=== PATIENT | male | born 1950 | race Caucasian/White ===

== ENCOUNTER 2022-11-04 06:49 | Inpatient (IN) ==
[2022-11-04] MEDS ORDERED: SODIUM CHLORIDE 0.9% 1000ML 1,000 ML IV SCH (07:15)
[2022-11-04] MEDS ORDERED: levETIRAcetam 1,000 MG in 0.9 % SODIUM CHLORIDE 100 ML IV STA (07:23)
[2022-11-04] MEDS ORDERED: LORazepam 2 MG/1 ML VIAL IV STA (07:25)
[2022-11-04 07:51] LABS: Appearance Urine Clear (Clear); Bacteria Urine Automated Negative (Negative); Bilirubin Urine Negative (Negative); Blood Urine Negative (Negative); Color Urine Yellow; Glucose Urine UA Negative (Negative); Ketones Urine Negative (Negative); Leukocyte Esterase Urine Negative (Negative); Nitrite Urine Negative (Negative); Protein Urine 2+ (Negative); RBC Urine Automated 0-4 /hpf (0-4); Specific Gravity Urine 1.017 (1.000-1.030); Urobilinogen Urine Negative (Negative); pH Urine 5.5 (4.5-7.5)
--- NOTE | 2022-11-04 07:58 | CT Scan Report ---
CT head/brain wo con CLINICAL HISTORY: 71 years-old Male with seizure. Acute seizure-like activity with altered mental st atus TECHNIQUE: Multiple axial CT images of the head were obtained without contrast. A dose lowering tech nique was utilized adhering to the principles of ALARA. CT DOSE: 1140.94 mGy.cm COMPARISON: None. FINDINGS: No acute intracranial hemorrhage, midline shift, intracranial mass, hydrocephalus, territorial ischem ia or abnormal extra-axial collection. Mild involutional changes. This study is motion degraded. The calvarium is intact. Trace right mastoid effusion. The left mastoid air cells are clear. Minimal mucosal thickening of the ethmoid sinuses. IMPRESSION: No acute intracranial abnormality. ACT 112: Negative or not required by law. The above report was generated using voice recognition software. It may contain grammatical, syntax o r spelling errors. Electronically signed by: Isidoro Gaines M.D. 11/04/2022 7:57 AM
--- NOTE | 2022-11-04 07:59 | XRay Report ---
XR chest 1V portable HISTORY: 71 years-old Male hypoxia acute hypoxia COMPARISON: None TECHNIQUE: AP view the chest FINDINGS: Cardiac silhouette is enlarged. Loop recorder device. Possible pulmonary emphysema. Interstitial coar sening is likely chronic. No pneumothorax, pleural effusion or lobar airspace consolidation. Degenera tive changes of the shoulders and spine. IMPRESSION: No acute process. ACT 112: Negative or not required by law. The above report was generated using voice recognition software. It may contain grammatical, syntax o r spelling errors. Electronically signed by: Isidoro Gaines M.D. 11/04/2022 7:58 AM
[2022-11-04 08:01] LABS: Basophils # (auto) 0.08 K/uL (0-0.2); Basophils % (auto) 1.1 %; Eosinophils # (auto) 0.13 K/uL (0-0.50); Eosinophils % (auto) 1.8 %; Hematocrit (blood only) 45.2 % (42.0-52.0); Hemoglobin 15.3 g/dl (14.0-18.0); Immature Granulocytes # (auto) 0.02 K/uL (0.01-0.20); Immature Granulocytes % (auto) 0.3 %; Lymphocytes # (auto) 1.44 K/uL (1.2-3.4); Lymphocytes % (auto) 20.4 %; Mean Corpuscular Hemoglobin 33.3 pg (25.0-34.0); Mean Corpuscular Hgb Conc 33.8 g/dL (32.0-36.0); Mean Corpuscular Volume 98.3 fL (80.0-100.0); Mean Platelet Volume 10.9 fL (9.4-12.4); Monocytes # (auto) 0.53 K/uL (0.11-0.59); Monocytes % (auto) 7.5 %; Neutrophils # (auto) 4.85 K/uL (1.40-6.50); Neutrophils % (auto) 68.9 %; Platelet Count 192 K/uL (130-400); RDW Coefficient of Variation 12.5 % (11.5-14.5); RDW Standard Deviation 44.9 fL (36.4-46.3); White Blood Count 7.05 K/ul (4.8-10.8)
[2022-11-04 08:08] LABS: Albumin Globulin Ratio 1.5 (0.9-2); Albumin Level 3.8 gm/dl (3.4-5.0); BUN Creatinine Ratio 17.3 (10-20); Bilirubin,Total 0.5 mg/dl (0.2-1.0); Creatinine Clr Calc Pharmacy 70.8 ml/min; Est GFR (African American) 107.7 ml/min; Est GFR (Non-African American) 92.9 ml/min; Globulin 2.5 gm/dl (2.5-4.0); Magnesium 1.8 mg/dl (1.7-2.4); Potassium 4.4 mmol/L (3.5-5.1); Total Protein 6.3 gm/dl (6.0-8.3)
--- NOTE | 2022-11-04 10:25 | Emergency Department Note ---
Impression & Plan Seizure, COPD (chronic obstructive pulmonary disease), Hypoxia ED Provider Note CHIEF COMPLAINT: Seizure HISTORY OF PRESENT ILLNESS: This 71-year-old male patient with past medical history of seizure disorder, chronic tobacco dependency (smoking) [place] the emergency department [place] was witnessed to have a 2 to 3-minute episode of "grand mal seizure." Patient was apparently on his way back from the outhouse when he started with convulsions. There is no report of injury. The patient is currently very emotional, unable to recall where he lives or exactly what happened. He states he has not had a seizure in many years. Patient is noted to be hypoxic and on oxy mask upon my initial evaluation. There is no report of vomiting. Patient states he is congested in the nose. He does not believe he has had any recent illnesses. Most of the history is obtained through EMS from bystanders at the scene and nursing staff. REVIEW OF SYSTEMS: A review of systems was performed with positives and pertinent negatives listed in the history of present illness. 10 systems were reviewed and are otherwise negative. ALLERGIES: see below MEDICATIONS: see below PMH: see below SOCIAL HISTORY: see below DDx: Epilepsy, infection, hypoglycemia, electrolyte abnormalities, dysrhythmia, intracerebral event, trauma, toxicologic, neurologic, syncope, as well as other pathologies. PHYSICAL EXAM: Vital signs reviewed. General: Well-appearing 71-year-old man, tearful and anxious, in no significant distress. HEENT: No scleral icterus, PERRLA, neck supple. Atraumatic. Positive nasal congestion Cardiovascular: Regular rate and rhythm, no extra sounds. Pulmonary: Coarse breath sounds bilaterally, normal work of breathing. On oxy mask. Moist cough Abdomen: Soft, nontender, nondistended, positive bowel sounds. Musculoskeletal: Atraumatic, no peripheral edema. Neurologic: Patient awake alert and unable to recall events preceding the visit. He does recall being at the camp and trying to go to the out house. Unable to provide address and last name of his children. Skin: Warm, dry, no rash EMERGENCY DEPARTMENT COURSE/MDM: This patient was evaluated and appeared to be in no distress. Patient was loaded with IV Keppra 1 g as he states he has been taking his 500 mg twice daily without a miss. IV fluids were administered. CT imaging of the head was performed and reveals no evidence of acute intracranial abnormality. Patient's laboratory work is fairly reassuring. He was initially on oxy mask due to significant nasal congestion which we attributed to his tearful state. He was then put on room air oxygen but upon my reevaluation was sating 84%. He was not in any respiratory distress but given his tonic-clonic seizure and hypoxia, was felt the patient would best be served with hospitalization to ensure stability. I am concerned that the hypoxia may be lowering the patient's seizure threshold. Patient was placed on 2 L nasal can nula oxygen with significant improvement. Chest x-ray is clear. [facility]. MONITORING: An order for cardiac monitoring was placed and the patient is noted to be in a normal sinus rhythm 72 beats per minute. RADIOLOGY: CT imaging of the head to my interpretation reveals no evidence of acute intracranial abnormality. Otherwise defer to radiology EKG: To my interpretation reveals a sinus rhythm at 86 bpm with PVCs. QTc of 445. No ST segment changes appreciated. No previous EKGs available. DISPOSITION: Admission Past Med/Surg History Medical History COPD (chronic obstructive pulmonary disease) Seizure Tobacco abuse Surgical History No pertinent past surgical history Family History Other Family history unknown Social History Smoking Status: Current every day smoker Tobacco Type: Cigarettes Cigarettes Per Day: 20; Hx Alcohol Use: Yes Alcohol type: beer Alcohol type Comment: few beers on the weekend, nothing heavy Hx Substance Use: No Beliefs That Will Affect Care: None Current Living Situation: Alone Other Information That Helps Us Care for You: No Feels Safe at Home: Yes Safety Concerns: Feels Safe At This Time Assistive Devices: None Allergies Allergies Allergy/AdvReac Type Severity Reaction Status Date / Time penicillin V Allergy Unknown Verified 11/04/22 11:12 bee sting Allergy Unknown Uncoded 11/04/22 11:12 Home Meds Home Medications Medication Instructions Recorded Confirmed M.V.I. 1 tab PO DAILY 11/04/22 11/04/22 bisoprolol fumarate 5 mg tablet 5 mg PO DAILY 11/04/22 11/04/22 cetirizine 10 mg tablet (Zyrtec) 10 mg PO DAILY 11/04/22 11/04/22 krill oil 500 mg capsule 1,000 mg PO DAILY 11/04/22 11/04/22 levetiracetam 500 mg tablet 500 mg PO BID 11/04/22 11/04/22 Results & Data (ED) Vital Signs Vital Signs - 24 hr 11/04/22 07:59 11/04/22 08:10 11/04/22 08:51 Pulse Rate 87 Pulse Rate [Apical] 88 72 Pulse Rhythm [Apical] Regular Regular Pulse Strength [Apical] Normal Normal Respiratory Rate 16 18 Respiratory Effort / Characteristics Non-Labored Spontaneous Non-Labored Spontaneous Respiratory Depth Normal Normal Respiratory Pattern Regular Regular Blood Pressure [Right Arm] 141/93 H 127/78 Blood Pressure Mean [Right Arm] 109 94 Blood Pressure Position [Right Arm] Lying Lying Pulse Oximetry 94 92 Oxygen Delivery Method Room Air Nasal Cannula Oxygen Flow Rate 2 Oxygen Flow Rate - Titration Pulse Oximetry Post Tiitration 11/04/22 09:57 Pulse Rate Pulse Rate [Apical] Pulse Rhythm [Apical] Pulse Strength [Apical] Respiratory Rate Respiratory Effort / Characteristics Respiratory Depth Respiratory Pattern Blood Pressure [Right Arm] Blood Pressure Mean [Right Arm] Blood Pressure Position [Right Arm] Pulse Oximetry 84 L Oxygen Delivery Method Nasal Cannula Oxygen Flow Rate 0 Oxygen Flow Rate - Titration 2 Pulse Oximetry Post Tiitration 92 Home Medications Current Medication List: was personally reviewed by me Laboratory Data Attestation: I reviewed the patient's lab results. 11/04/22 07:10 11/04/22 07:10 Lab Results 11/04/22 11/04/22 11/04/22 Range/Units 07:10 07:10 07:10 WBC 7.05 (4.8-10.8) K/ul RBC 4.60 L (4.70-6.10) M/uL Hgb 15.3 (14.0-18.0) g/dl Hct 45.2 (42.0-52.0) % MCV 98.3 (80.0-100.0) fL MCH 33.3 (25.0-34.0) pg MCHC 33.8 (32.0-36.0) g/dL RDW Std Deviation 44.9 (36.4-46.3) fL RDW Coeff of [place] 12.5 (11.5-14.5) % Plt Count 192 (130-400) K/uL MPV 10.9 (9.4-12.4) fL Immature Gran % (Auto) 0.3 % Neut % (Auto) 68.9 % Lymph % (Auto) 20.4 % [place] % (Auto) 7.5 % Eos % (Auto) 1.8 % Baso % (Auto) 1.1 % Neut # (Auto) 4.85 (1.40-6.50) K/uL Lymph # (Auto) 1.44 (1.2-3.4) K/uL [place] # (Auto) 0.53 (0.11-0.59) K/uL Eos # (Auto) 0.13 (0-0.50) K/uL Baso # (Auto) 0.08 (0-0.2) K/uL Immature Gran # (Auto) 0.02 (0.01-0.20) K/uL Sodium 141 (136-145) mmol/L Potassium 4.4 (3.5-5.1) mmol/L Chloride 105 (98-107) mmol/L Carbon Dioxide 32 (21-32) mmol/L Anion Gap 4 (3-11) BUN 13 (6-23) mg/dl Creatinine 0.75 (0.6-1.4) mg/dl Est Cr Clr Drug Dosing 70.8 ml/min Est GFR ( Amer) 107.7 ml/min Est GFR (Non-Af Amer) 92.9 ml/min BUN/Creatinine Ratio 17.3 (10-20) Glucose 107 H (70-99(Fasting)) mg/dl Lactate (0.4-2.0) mmol/L Calcium 9.0 (8.6-10.3) mg/dl Magnesium 1.8 (1.7-2.4) mg/dl Total Bilirubin 0.5 (0.2-1.0) mg/dl AST 20 (13-39) U/L ALT 12 (7-52) U/L Alkaline Phosphatase 73 (34-104) U/L Total Protein 6.3 (6.0-8.3) gm/dl Albumin 3.8 (3.4-5.0) gm/dl Globulin 2.5 (2.5-4.0) gm/dl Albumin/Globulin Ratio 1.5 (0.9-2) Urine Color Yellow Urine Appearance Clear (Clear) Urine pH 5.5 (4.5-7.5) Ur Specific [place] 1.017 (1.000-1.030) Urine Protein 2+ H (Negative) Urine Glucose (UA) Negative (Negative) Urine Ketones Negative (Negative) Urine Blood Negative (Negative) Urine Nitrite Negative (Negative) Urine Bilirubin Negative (Negative) Urine Urobilinogen Negative (Negative) Ur Leukocyte Esterase Negative (Negative) Urine WBC (Auto) 1-5 (0-5) /hpf Urine RBC (Auto) 0-4 (0-4) /hpf U Hyaline Cast (Auto) 5-10 H (0-5) /lpf U Epithel Cells (Auto) 10-20 H (0-5) /lpf Urine Bacteria (Auto) Negative (Negative) SARS-CoV-2, RNA, NAAT (NEGATIVE) 11/04/22 11/04/22 Range/Units 07:22 09:57 WBC (4.8-10.8) K/ul RBC (4.70-6.10) M/uL Hgb (14.0-18.0) g/dl Hct (42.0-52.0) % MCV (80.0-100.0) fL MCH (25.0-34.0) pg MCHC (32.0-36.0) g/dL RDW Std Deviation (36.4-46.3) fL RDW Coeff of [place] (11.5-14.5) % Plt Count (130-400) K/uL MPV (9.4-12.4) fL Immature Gran % (Auto) % Neut % (Auto) % Lymph % (Auto) % [place] % (Auto) % Eos % (Auto) % Baso % (Auto) % Neut # (Auto) (1.40-6.50) K/uL Lymph # (Auto) (1.2-3.4) K/uL [place] # (Auto) (0.11-0.59) K/uL Eos # (Auto) (0-0.50) K/uL Baso # (Auto) (0-0.2) K/uL Immature Gran # (Auto) (0.01-0.20) K/uL Sodium (136-145) mmol/L Potassium (3.5-5.1) mmol/L Chloride (98-107) mmol/L Carbon Dioxide (21-32) mmol/L Anion Gap (3-11) BUN (6-23) mg/dl Creatinine (0.6-1.4) mg/dl Est Cr Clr Drug Dosing ml/min Est GFR ( Amer) ml/min Est GFR (Non-Af Amer) ml/min BUN/Creatinine Ratio (10-20) Glucose (70-99(Fasting)) mg/dl Lactate 1.3 (0.4-2.0) mmol/L Calcium (8.6-10.3) mg/dl Magnesium (1.7-2.4) mg/dl Total Bilirubin (0.2-1.0) mg/dl AST (13-39) U/L ALT (7-52) U/L Alkaline Phosphatase (34-104) U/L Total Protein (6.0-8.3) gm/dl Albumin (3.4-5.0) gm/dl Globulin (2.5-4.0) gm/dl Albumin/Globulin Ratio (0.9-2) Urine Color Urine Appearance (Clear) Urine pH (4.5-7.5) Ur Specific [place] (1.000-1.030) Urine Protein (Negative) Urine Glucose (UA) (Negative) Urine Ketones (Negative) Urine Blood (Negative) Urine Nitrite (Negative) Urine Bilirubin (Negative) Urine Urobilinogen (Negative) Ur Leukocyte Esterase (Negative) Urine WBC (Auto) (0-5) /hpf Urine RBC (Auto) (0-4) /hpf U Hyaline Cast (Auto) (0-5) /lpf U Epithel Cells (Auto) (0-5) /lpf Urine Bacteria (Auto) (Negative) SARS-CoV-2, RNA, NAAT NEGATIVE (NEGATIVE) Administered Medications Levetiracetam (Levetiracetam 500 Mg Tab) 1,000 mg PO Q12H ANISH Stop: 12/04/22 18:59 Last Admin: 11/05/22 06:45 Dose: 1,000 mg Documented By: Admin: 11/04/22 18:14 Dose: 1,000 mg Documented By: GPF Nicotine (Nicotine 21 Mg/24 Hr Tdsy) 21 mg TD QAM ANISH Stop: 12/04/22 14:42 Last Admin: 11/04/22 16:41 Dose: 21 mg Documented By: GPF Discontinued Medications Bisoprolol Fumarate (Bisoprolol Fumarate 5 Mg Tab) 5 mg PO NOW STA Stop: 11/04/22 12:00 Last Admin: 11/04/22 12:48 Dose: 5 mg Documented By: CHASE Gadobutrol (Gadobutrol 65ml Vial) 5.6 ml IV ONCE ONE Stop: 11/04/22 14:10 Last Admin: 11/04/22 14:09 Dose: 5.6 ml Documented By: [facility] Sodium Chloride (Nss 1000ml) 1,000 mls @ 999 mls/hr IV .Q1H1M ANISH Stop: 11/04/22 08:15 Last Infusion: 11/04/22 08:28 Dose: 0 mls/hr Documented By: Admin: 11/04/22 07:28 Dose: 999 mls/hr Documented By: ANGELA Levetiracetam 1,000 mg/ Sodium (Chloride) 110 mls @ 440 mls/hr IV NOW STA Stop: 11/04/22 07:37 Last Infusion: 11/04/22 08:11 Dose: 0 mls/hr Documented By: Admin: 11/04/22 07:56 Dose: 440 mls/hr Documented By: ANGELA Ioversol (Optiray 320 125ml) 85 ml IV ONCE ONE Stop: 11/04/22 12:31 Last Admin: 11/04/22 12:30 Dose: 85 ml Documented By: ERNESTO Lorazepam (Lorazepam 2 Mg/1 Ml Vial) 0.5 mg IV NOW STA Stop: 11/04/22 07:26 Last Admin: 11/04/22 07:39 Dose: 0.5 mg Documented By: ANGELA Imaging Data Radiologist's Impression: Head CT 11/04/22 07:11 CT head/brain wo con CLINICAL HISTORY: 71 years-old Male with seizure. Acute seizure-like activity with altered mental status TECHNIQUE: Multiple axial CT images of the head were obtained without contrast. A dose lowering technique was utilized adhering to the principles of ALARA. CT DOSE: 1140.94 mGy.cm COMPARISON: None. FINDINGS: No acute intracranial hemorrhage, midline shift, intracranial mass, hydrocephalus, territorial ischemia or abnormal extra-axial collection. Mild involutional changes. This study is motion degraded. The calvarium is intact. Trace right mastoid effusion. The left mastoid air cells are clear. Minimal mucosal thickening of the ethmoid sinuses. IMPRESSION: No acute intracranial abnormality. ACT 112: Negative or not required by law. The above report was generated using voice recognition software. It may contain grammatical, syntax or spelling errors. Electronically signed by: Isidoro Gaines M.D. 11/04/2022 7:57 AM Chest X-Ray 11/04/22 07:12 XR chest 1V portable HISTORY: 71 years-old Male hypoxia acute hypoxia COMPARISON: None TECHNIQUE: AP view the chest FINDINGS: Cardiac silhouette is enlarged. Loop recorder device. Possible pulmonary emphysema. Interstitial coarsening is likely chronic. No pneumothorax, pleural effusion or lobar airspace consolidation. Degenerative changes of the shoulders and spine. IMPRESSION: No acute process. ACT 112: Negative or not required by law. The above report was generated using voice recognition software. It may contain grammatical, syntax or spelling errors. Electronically signed by: Isidoro Gaines M.D. 11/04/2022 7:58 AM Brain MRI 11/04/22 11:28 MRI OF THE BRAIN WITHOUT AND WITH IV CONTRAST SEIZURE PROTOCOL CLINICAL HISTORY: Seizure. COMPARISON STUDY: Head CT performed earlier today. TECHNIQUE: Utilizing a 1.5 Kristin magnet and dedicated coil, multiplanar, multiecho imaging of the brain was performed pre and postcontrast administr ation. IV administration of 5.6 mL of Gadavist contrast was uneventful. Thin cut coronal T2 imaging was performed according to seizure protocol. FINDINGS: This exam is moderately compromised by motion artifact although remains diagnostic. There are no foci restricted diffusion to suggest acute infarct. No acute intracranial hemorrhage, midline shift or mass effect is pr esent. Brain volume is normal. Ventricular system is normal. Basal cisterns are patent. There are no extra-axial collections. No intracranial mass or pathologic enhancement is present. No significant parenchymal signal abnormality is noted. Calvarial signal is normal. IMPRESSION: 1. No acute intracranial findings. 2. Exam moderately compromised by motion artifact however the study is diagnostic. No significant abnormalities. ACT 112: Negative or not required by law. Electronically signed by: Negrito Blankenship M.D. 11/04/2022 2:51 PM Discharge Plan Visit Data Chief Complaint: Seizure Stated Complaint: seizure ED Provider: Kailyn Rich Discharge Problem: Seizure, COPD (chronic obstructive pulmonary disease), Hypoxia Patient Disposition: Admitted As Inpatient Discharge Instructions Interventions: ED Discharge Assessment Last Done: 11/04/22 13:16 COPD (chronic obstructive pulmonary disease) Qualifiers: COPD type: COPD with acute exacerbation Qualified Code(s): J44.1 - Chronic obstructive pulmonary disease with (acute) exacerbation
--- NOTE | 2022-11-04 11:02 | Electrocardiogram Report ---
Test Reason : Blood Pressure : / mmHG Vent. Rate : 086 BPM Atrial Rate : 086 BPM P-R Int : 150 ms QRS Dur : 082 ms QT Int : 372 ms P-R-T Axes : 089 045 055 degrees QTc Int : 445 ms Sinus rhythm with occasional Premature ventricular complexes Otherwise normal ECG No previous ECGs available Confirmed by Donavon Egan ([id number]) on 11/04/2022 11:01:48 AM Referred By: Confirmed By:Osiel Egan
--- NOTE | 2022-11-04 11:20 | History & Physical Report ---
Date of Service November 04, 2022 Assessment & Plan (1) Seizure: Plan: h/o epilepsy, two events reported closely together over the past month after a long history of stability on Keppra 500mg PO BID. Patient reports compliance with antiseizure medications. He denies any recent illnesses. He does have COPD and was slightly hypoxic on room air this morning. He did start and OTC Robitussin pill? recently given to him by daughter. He was drinking alcohol last evening and has been at [employer] for the past week (typically people drink more consistently when at [employer]) and this may have contributed to seizures. Hypoxia workup as outlined below. CT head was negative. Will order MRI with and wo contrast, and EEG. CT chest for continued workup on hypoxia. Urine tox screen. Cont Keppra 1gm IV q12h for now pending neurology recommendations. Cont seizure precautions. Ativan PRN seizure. (2) Hypoxia: Plan: Currently 97% on 2LPM via nasal canula. May be related to seizure event this morning. No signs of COPD exacerbation at this time. CXR clear and lung exam reveals clear lungs to auscultation. CT PE ordered in ER with results pending. It is possible that hypoxia may be lowering his seizure threshold. Cont to wean oxygen as tolerated. (3) COPD (chronic obstructive pulmonary disease): Plan: chronic, doesn't appear to be in exacerbation. Not on inhalers at home. Continues to smoke. Denies use of oxygen. Exercise intolerance reported over the past year. Will order echo. (4) Tobacco abuse: Plan: Smoking cessation strongly advised. Will provide Nicoderm for now. SCDs for now, would add chemoprophylaxis once MRI has confirmed no intracranial mass or bleed. Full Code Dispo-to PCU DO Chad Bauer Hospitalist History of Present Illness Chief Complaint: seizure Primary Care Provider: DALY MATUTE 71 yo M presents today after a seizure The patient reports going to sleep prior to MN last night. He is out at [employer] and states he remembers walking to the bathroom to urinate. He did drink "a few beers" and denies other marijuana or other recreational drug use. He was "on and off" with his sleep overnight and doesn't remember anything further until EMS arrived. Per his MARIELLA who is at bedside and was sleeping next to patient at [employer], MARIELLA states the patient was screaming in his sleep and witnessed to be convulsing in his sleep. MARIELLA states couldn't wake up patient for about an hour but after a couple of minutes, the convulsions stopped and he was sleeping and unable to be woken up. He was still breathing and EMS was called. When they arrived, MARIELLA states the patient was able to recognize him but was still "out of it." The first reported seizure was 4-5 years ago occurring at work when he had no presyncopal symptoms and passed out. He doesn't remember the episode but was worked up and placed on Keppra. He was seen by Dev Parada PA-C with [facility] in [place], [place] and was allowed to drive again. One month ago, he lives alone, and wasn't answering the phone. When family found him he was confused. It is assumed the patient had a seizure at that time as well and was found post- ictal. Today the patient is now oriented and answering questions appropriately. He denies headache, fevers, recent bug bites, chest pain or acute SOB. He is a chronic lifelong smoker who reports a rpogressive worsening of exercise intolerance over the past two years. He can now only walk about 50-75 ft when last ar he could walk at least one mile without stopping to rest. He does not wear oxygen at home and reports having COPD. He is not on any inhalers. ROS also reveals chronic urinary frequency and patient reports recently undergoing a cystoscopy. He reports not being offered a medication to treat BPH. He has not tried to quit smoking but "I know I should quit." Reports a chronic cough with some increased frequency of cough, but not productive of sputum that has changed. He was taking Robitussin which his daughter gave him and he takes Zyrtec regularly for nasal congestion. He reports a remote h/o allergy to bee stings, but cannot remember the reaction. He declines epi pen and appears overwhelmed today by the suggestion and all the questioning above. He is still driving and was out at camp riding 4 wheelers and [id number]. We did discuss the dangers of operating a vehicle for himself and others, as well as the dangers of bathing, swimming, heights, and use of power tools. He verbalized understanding and MARIELLA states "he won't be driving at this point." Current vitals are 97/75 69 97% on 2L via [place] [facility] is PCP Neurology seen in the past Dr. Dev Parada PA-C with [facility] Daughter is POA Allergies Allergy/AdvReac Type Severity Reaction Status Date / Time penicillin V Allergy Unknown Verified 11/04/22 11:12 bee sting Allergy Unknown Uncoded 11/04/22 11:12 Home Medications Medication Instructions Recorded Confirmed Type M.V.I. 1 tab PO DAILY 11/04/22 11/04/22 History bisoprolol fumarate 5 mg tablet 5 mg PO DAILY 11/04/22 11/04/22 History cetirizine 10 mg tablet (Zyrtec) 10 mg PO DAILY 11/04/22 11/04/22 History krill oil 500 mg capsule 1,000 mg PO DAILY 11/04/22 11/04/22 History levetiracetam 500 mg tablet 500 mg PO BID 11/04/22 11/04/22 History Past Med/Surg History Medical History (Updated 11/04/22 @ 11:58 by Radha Spencer DO) COPD (chronic obstructive pulmonary disease) Seizure Tobacco abuse Surgical History No pertinent past surgical history Family History Other Family history unknown Social History (Updated 11/04/22 @ 11:52 by Radha Spencer DO) Smoking Status: Current every day smoker Tobacco Type: Cigarettes Hx Alcohol Use: Yes Alcohol type: beer Alcohol type Comment: few beers on the weekend, nothing heavy Hx Substance Use: No Feels Safe at Home: Yes Review of Systems Review of Systems: All systems were reviewed and negative except as indicated on HPI above. Physical Exam Physical Exam: CONSTITUTIONAL: WNWD, vitals as above, generally well-appearing, NAD EYES: EOMI bilaterally, PERRL, normal conjunctivae, no scleral icterus, bespectacled ENT: external ear and nose normal, oropharynx clear, MMM NECK: trachea midline RESPIRATORY: clear to auscultation bilaterally, no crackles, rales or wheezes, normal respiratory effort CARDIOVASCULAR: regular rate and rhythm, S1 and 2 heard without murmurs, gallops or rubs, no JVD, no peripheral edema CHEST: inspection of chest was normal GASTROINTESTINAL: soft, nontender, ND, no guarding MUSCULOSKELETAL: strength 5/5 throughout, head is normocephalic and atraumatic SKIN: warm and dry NEUROLOGIC: CN 2-12 grossly intact, no sensory deficit, normal cognition, normal speech, no tremor PSYCHIATRIC: alert cooperative and oriented to person, place and time. Euthymic mood, makes good eye contact, language grossly intact, recent and remote memory grossly intact. Results & Data Results & Data Vital Signs (Past 12 Hours) Vital Signs Temp Pulse Pulse Resp BP BP Pulse Ox 11/04/22 09:57 84 L 11/04/22 08:51 72 18 127/78 92 11/04/22 08:10 87 11/04/22 07:59 88 16 141/93 H 94 11/04/22 06:54 36.4 C L 95 H 24 130/74 93 O2 Del Method O2 Flow Rate 11/04/22 09:57 Nasal Cannula 0 11/04/22 08:51 Nasal Cannula 2 11/04/22 08:10 11/04/22 07:59 Room Air 11/04/22 06:54 Oxymask 5 Laboratory Results Short CBC 11/04/22 Range/Units 07:10 WBC 7.05 (4.8-10.8) K/ul Hgb 15.3 (14.0-18.0) g/dl Hct 45.2 (42.0-52.0) % Plt Count 192 (130-400) K/uL BMP 11/04/22 07:10 Sodium 141 Potassium 4.4 Chloride 105 Carbon Dioxide 32 BUN 13 Creatinine 0.75 Glucose 107 H Calcium 9.0 Liver Function 11/04/22 Range/Units 07:10 Total Bilirubin 0.5 (0.2-1.0) mg/dl AST 20 (13-39) U/L ALT 12 (7-52) U/L Alkaline Phosphatase 73 (34-104) U/L Albumin 3.8 (3.4-5.0) gm/dl Urine 11/04/22 Range/Units 07:10 Urine Color Yellow Urine Appearance Clear (Clear) Urine pH 5.5 (4.5-7.5) Ur Specific Shafter 1.017 (1.000-1.030) Urine Protein 2+ H (Negative) Urine Glucose (UA) Negative (Negative) Diagnostic Findings Head CT 11/04/22 07:11 CT head/brain wo con CLINICAL HISTORY: 71 years-old Male with seizure. Acute seizure-like activity with altered mental status TECHNIQUE: Multiple axial CT images of the head were obtained without contrast. A dose lowering technique was utilized adhering to the principles of ALARA. CT DOSE: 1140.94 mGy.cm COMPARISON: None. FINDINGS: No acute intracranial hemorrhage, midline shift, intracranial mass, hydrocephalus, territorial ischemia or abnormal extra-axial collection. Mild involutional changes. This study is motion degraded. The calvarium is intact. Trace right mastoid effusion. The left mastoid air cells are clear. Minimal mucosal thickening of the ethmoid sinuses. IMPRESSION: No acute intracranial abnormality. ACT 112: Negative or not required by law. The above report was generated using voice recognition software. It may contain grammatical, syntax or spelling errors. Electronically signed by: Isidoro Gaines M.D. 11/04/2022 7:57 AM Chest X-Ray 11/04/22 07:12 XR chest 1V portable HISTORY: 71 years-old Male hypoxia acute hypoxia COMPARISON: None TECHNIQUE: AP view the chest FINDINGS: Cardiac silhouette is enlarged. Loop recorder device. Possible pulmonary emphysema. Interstitial coarsening is likely chronic. No pneumothorax, pleural effusion or lobar airspace consolidation. Degenerative changes of the shoulders and spine. IMPRESSION: No acute process. ACT 112: Negative or not required by law. The above report was generated using voice recognition software. It may contain grammatical, syntax or spelling errors. Electronically signed by: Isidoro Gaines M.D. 11/04/2022 7:58 AM
[2022-11-04] MEDS ORDERED: BISOPROLOL FUMARATE 5 MG TAB PO STA (11:59)
[2022-11-04] MEDS ORDERED: OPTIRAY 320 125ml IV ONE (12:30)
--- NOTE | 2022-11-04 12:51 | CT Scan Report ---
CT ANGIOGRAPHY OF THE CHEST, PULMONARY EMBOLUS PROTOCOL CLINICAL HISTORY: Shortness of breath. Evaluate for pulmonary embolus. COMPARISON STUDY: Chest radiograph performed earlier today. TECHNIQUE: Following IV administration of 85 mL of Optiray, helical axial images of the chest were ob tained utilizing the pulmonary embolus protocol. Maximal intensity projections and sagittal and geronimo nal reformats were viewed on an independent 3D workstation. IV contrast was administered without com plication. Automated exposure control was utilized for the study. A dose lowering technique was uti lized adhering to the principles of ALARA. FINDINGS: No pulmonary emboli are identified. Size of the heart is normal. There is no thoracic aort ic dissection. No pericardial effusion. There is no thoracic lymphadenopathy. There is mild to modera te calcification of the aortic valve. No pneumothorax or pleural effusion is present. Minimal tree-in -bud nodules within the left lower lobe are noted. There is mild left lower lobe bronchial wall thick ening. There are scattered moderate secretions within the airways, including at the parmjit extending into the mainstem bronchi. Moderate emphysema is noted. A 6 mm linear right upper lobe nodule on imag e 138 is probably benign. Thorax is unremarkable. IMPRESSION: 1. No pulmonary emboli identified. 2. Moderate emphysema. Scattered secretions within the airways, as described above. 3. Minimal tree-in-bud nodules within left lower lobe suggestive of bronchiolitis. No consolidation t o suggest pneumonia. 4. 6 mm right upper lobe nodule. This is likely benign. A follow up chest CT in [address] ability is recommended. ACT 112: Negative or not required by law. Electronically signed by: Negrito Blankenship M.D. 11/04/2022 12:49 PM
[2022-11-04] MEDS ORDERED: GADOBUTROL 65ML VIAL IV ONE (14:09)
[2022-11-04] MEDS ORDERED: LORazepam 2 MG/1 ML VIAL IV PRN (14:43)
[2022-11-04] MEDS ORDERED: ACETAMINOPHEN 325 MG TAB PO PRN (14:43)
[2022-11-04] MEDS ORDERED: POLYETHYLENE (MIRALAX) 17 GM PACK PO PRN (14:43)
[2022-11-04] MEDS ORDERED: ONDANSETRON INJ 2 MG/ML 2 ML VIAL IV PRN (14:43)
--- NOTE | 2022-11-04 14:52 | Magnetic Resonance Report ---
MRI OF THE BRAIN WITHOUT AND WITH IV CONTRAST SEIZURE PROTOCOL CLINICAL HISTORY: Seizure. COMPARISON STUDY: Head CT performed earlier today. TECHNIQUE: Utilizing a 1.5 Kristin magnet and dedicated coil, multiplanar, multiecho imaging of the br ain was performed pre and postcontrast administration. IV administration of 5.6 mL of Gadavist contr ast was uneventful. Thin cut coronal T2 imaging was performed according to seizure protocol. FINDINGS: This exam is moderately compromised by motion artifact although remains diagnostic. There a re no foci restricted diffusion to suggest acute infarct. No acute intracranial hemorrhage, midline s hift or mass effect is present. Brain volume is normal. Ventricular system is normal. Basal cisterns are patent. There are no extra-axial collections. No intracranial mass or pathologic enhancement is p resent. No significant parenchymal signal abnormality is noted. Calvarial signal is normal. IMPRESSION: 1. No acute intracranial findings. 2. Exam moderately compromised by motion artifact however the study is diagnostic. No significant abn ormalities. ACT 112: Negative or not required by law. Electronically signed by: Negrito Blankenship M.D. 11/04/2022 2:51 PM
--- NOTE | 2022-11-04 16:11 | Neurology Consultation ---
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 Patient reports compliance with keppra but in the setting of additional alcohol intake and poor sleep, likely triggered a breakthrough. Recommend increasing Keppra to 1000mg BID and following up with neurology as an outpatient. No role for EEG in the setting of known epilepsy as patient is back to baseline. -- Keppra 1000mg BID -- Neurology follow-up 6-8 weeks -- Please contact us with any additional questions. Telehealth Consultation Telehealth Information Telehealth Information: I performed this visit using a real-time telehealth connection between my location and the patients location ([facility]). After connecting through interactive tele-video, patient was identified by name and date of and/or wristband check.Patient (or authorized healthcare videotape sales representative) was informed that this was a telemedicine visit and it was being conducted confidentially over secure lines. My office door was closed and no one else was present in the room with me.Patient (or authorized healthcare videotape sales representative) provided consent to proceed with the visit, expressed an understanding of privacy and security of the telemedicine visit, and gave permission to have a hospital videotape sales representative in the room in order to assist with the visit and to conduct portions of the visit, as needed. I informed the patient (or authorized healthcare videotape sales representative) that I reviewed their record and presented the opportunity for them to ask any questions regarding the visit today. The patient agreed to participate. History of Present Illness Reason for Consultation: Seizure Requesting Physician: Dr. Spencer Attending Physician: Radha Spencer, DO History of Present Illness Luis Yan is a 71 yo M presenting with a breakthrough seizure in the setting of known epilepsy on Keppra 500mg BID. He does not recall the circumstances of the seizure but [place] his [place] and has been drinking more than usual. He also reports having less stamina with difficulty breathing more than usual. He reports not getting good sleep and having to sleep in a recliner. He denies any missed doses of keppra. He is unsure why he has a seizure disorder but recalls his first seizure was after a head injury at work. Otherwise he has only had 3-4 other episodes in the past and was seeing a PA in the [employer] system but is unsure if he had ever seen a neurologist. Allergies Allergy/AdvReac Type Severity Reaction Status Date / Time penicillin V Allergy Unknown Verified 11/04/22 11:12 bee sting Allergy Unknown Uncoded 11/04/22 11:12 Home Medications Medication Instructions Recorded Confirmed Type M.V.I. 1 tab PO DAILY 11/04/22 11/04/22 History bisoprolol fumarate 5 mg tablet 5 mg PO DAILY 11/04/22 11/04/22 History cetirizine 10 mg tablet (Zyrtec) 10 mg PO DAILY 11/04/22 11/04/22 History krill oil 500 mg capsule 1,000 mg PO DAILY 11/04/22 11/04/22 History levetiracetam 500 mg tablet 500 mg PO BID 11/04/22 11/04/22 History Patient History Medical History (Updated 11/04/22 @ 11:58 by Radha Spencer DO) COPD (chronic obstructive pulmonary disease) Seizure Tobacco abuse Surgical History No pertinent past surgical history Family History Other Family history unknown Social History (Updated 11/04/22 @ 11:52 by Radha Spencer DO) Smoking Status: Current every day smoker Tobacco Type: Cigarettes Cigarettes Per Day: 20; Hx Alcohol Use: Yes Alcohol type: beer Alcohol type Comment: few beers on the weekend, nothing heavy Hx Substance Use: No Beliefs That Will Affect Care: None Current Living Situation: Alone Other Information That Helps Us Care for You: No Feels Safe at Home: Yes Safety Concerns: Feels Safe At This Time Assistive Devices: None Review of Systems +seizure Physical Exam Neurological Examination: Mental Status: Awake and alert. Oriented to person, place, and time. Fluent. Comprehension intact. Affect appropriate. Cranial Nerves: II: cantu grossly intact. III/IV/: Versions intact without nystagmus, no gaze preference. V: Facial sensation symmetric to light touch VII: Facial expression symmetric VIII: Hearing intact to voice IX/X: Palate elevates symmetrically XI: Shoulder shrug symmetric XII: Tongue midline Motor: Strength was symmetric and antigravity throughout. Pronator drift was absent. There were no abnormal movements. Coordination: Finger to nose and heel to morales were intact. Reflexes: Unable to assess over telemedicine Results & Data Vital Signs (Past 12 Hours) Vital Signs Temp Pulse Pulse Resp BP BP Pulse Ox 11/04/22 14:30 11/04/22 14:26 36.4 C L 62 16 132/68 98 11/04/22 13:16 11/04/22 12:50 68 16 140/61 100 11/04/22 12:10 83 11/04/22 11:47 91 H 18 120/63 94 11/04/22 09:57 84 L 11/04/22 08:51 72 18 127/78 92 11/04/22 08:10 87 11/04/22 07:59 88 16 141/93 H 94 11/04/22 06:54 36.4 C L 95 H 24 130/74 93 O2 Del Method O2 Flow Rate 11/04/22 14:30 Nasal Cannula 2 11/04/22 14:26 Nasal Cannula 2 11/04/22 13:16 Nasal Cannula 2 11/04/22 12:50 Nasal Cannula 2 11/04/22 12:10 11/04/22 11:47 Nasal Cannula 2 11/04/22 09:57 Nasal Cannula 0 11/04/22 08:51 Nasal Cannula 2 11/04/22 08:10 11/04/22 07:59 Room Air 11/04/22 06:54 Oxymask 5 Laboratory Results Abnormal lab results 11/04/22 11/04/22 11/04/22 Range/Units 07:10 07:10 07:10 RBC 4.60 L (4.70-6.10) M/uL Glucose 107 H (70-99(Fasting)) mg/dl Urine Protein 2+ H (Negative) U Hyaline Cast (Auto) 5-10 H (0-5) /lpf U Epithel Cells (Auto) 10-20 H (0-5) /lpf Diagnostic Findings MRI brain - unremarkable
[2022-11-04] MEDS: NICOTINE 21 MG/24 HR TDSY TD SCH (16:41)
[2022-11-04] MEDS: levETIRAcetam 500 MG TAB PO SCH (18:14)
[2022-11-04] MEDS ORDERED: levETIRAcetam 1,000 MG in 0.9 % SODIUM CHLORIDE 100 ML IV SCH (19:00)
[2022-11-05] MEDS: levETIRAcetam 500 MG TAB PO SCH (06:45)
[2022-11-05] MEDS ORDERED: BISOPROLOL FUMARATE 5 MG TAB PO SCH (09:00)
[2022-11-05] MEDS: NICOTINE 21 MG/24 HR TDSY TD SCH (10:20)
--- NOTE | 2022-11-05 14:44 | Hospitalist Progress Note ---
Date of Service November 05, 2022 Assessment & Plan (1) Seizure: Plan: Breakthrough Seizure per admitting service notes: h/o epilepsy, two events reported closely together over the past month after a long history of stability on Keppra 500mg PO BID. Patient reports compliance with antiseizure medications. He denies any recent illnesses. He does have COPD and was slightly hypoxic on room air this morning. He did start and OTC Robitussin pill? recently given to him by daughter. He was drinking alcohol last evening and [place] the [place] (typically people drink more consistently when at camp) and this may have contributed to seizures. Hypoxia workup as outlined below. CT head was negative. Will order MRI with and wo contrast, and EEG. CT chest for continued workup on hypoxia. Urine tox screen. Cont Keppra 1gm IV q12h for now pending neurology recommendations. Cont seizure precautions. Ativan PRN seizure. 11/05 Brain MRI: no acute CVA evaluated by Neurologist- recommend to increase Keppra to 1000mg BID ff up with Neuro in 2 week (2) Hypoxia: Plan: Currently 97% on 2LPM via nasal canula. May be related to seizure event this morning. No signs of COPD exacerbation at this time. CXR clear and lung exam reveals clear lungs to auscultation. CT PE ordered in ER with results pending. It is possible that hypoxia may be lowering his seizure threshold. Cont to wean oxygen as tolerated. 11/[address] chest: 1. No pulmonary emboli identified. 2. Moderate emphysema. Scattered secretions within the airways, as described above. 3. Minimal tree-in-bud nodules within left lower lobe suggestive of bronchiolitis. No consolidation to suggest pneumonia. 4. 6 mm right upper lobe nodule. This is likely benign. A follow up chest CT in 6 months to ensure stability is recommended. - may benefit from Doxycycline x 1 week, PRN Albuterol (3) COPD (chronic obstructive pulmonary disease): Plan: chronic, doesn't appear to be in exacerbation. Not on inhalers at home. Continues to smoke. Denies use of oxygen. Exercise intolerance reported over the past year. 11/05 Echo: EF 55-60% Gr 2 Diastolic Dysfunction moderate valvular aortic stenosis (4) Tobacco abuse: Plan: Smoking cessation strongly advised. Will provide Nicoderm for now. Patient signed out AMA before I was able to evaluate him I called his phone to discuss discharge instructions- no answer, left a voicemail requesting callback today Will call patient again later today. Admission and Anticipated Discharge Date Admission Date: November 04, 2022 Subjective patient left AMA before I was able to evaluate him Review of Systems Review of Systems: per above Physical Exam Physical Exam: per above Results & Data Results & Data Vital Signs (Past 12 Hours) Vital Signs Temp Pulse Pulse Resp BP Pulse Ox O2 Del Method 11/05/22 07:30 45 L 11/05/22 11:50 36.6 C 61 20 105/61 77 L 11/05/22 07:38 36.6 C 61 20 105/61 77 L Room Air 11/05/22 03:08 36.3 C L 51 L 18 113/51 L 99 Nasal Cannula O2 Flow Rate 11/05/22 07:30 11/05/22 11:50 11/05/22 07:38 11/05/22 03:08 2 all noted and reviewed including below (3) COPD (chronic obstructive pulmonary disease) COPD type: COPD with acute exacerbation Qualified Code(s): J44.1 - Chronic obstructive pulmonary disease with (acute) exacerbation
--- NOTE | 2022-11-05 14:47 | Discharge Summary ---
Discharge Summary Date of Service November 05, 2022 Notes For Next Care Provider Patient needs repeat CT chest in 6 months to ff up R lung nodule Please refer to assessment and plan below for full details. Medication Changes From Visit Keppra increased to 1000mg BID Admission HPI Per Admitting Provider 71 yo M presents today after a seizure The patient reports going to sleep prior to MN last night. He is out at tiller and states he remembers walking to the bathroom to urinate. He did drink "a few beers" and denies other marijuana or other recreational drug use. He was "on and off" with his sleep overnight and doesn't remember anything further until EMS arrived. Per his MARIELLA who is at bedside and was sleeping next to patient at tiller, AMRIELLA states the patient was screaming in his sleep and witnessed to be convulsing in his sleep. MARIELLA states couldn't wake up patient for about an hour but after a couple of minutes, the convulsions stopped and he was sleeping and unable to be woken up. He was still breathing and EMS was called. When they arrived, MARIELLA states the patient was able to recognize him but was still "out of it." The first reported seizure was 4-5 years ago occurring at work when he had no presyncopal symptoms and passed out. He doesn't remember the episode but was worked up and placed on Keppra. He was seen by Dev Parada PA-C with [facility] in [place], [place] and was allowed to drive again. One month ago, he lives alone, and wasn't answering the phone. When family found him he was confused. It is assumed the patient had a seizure at that time as well and was found post- ictal. Today the patient is now oriented and answering questions appropriately. He denies headache, fevers, recent bug bites, chest pain or acute SOB. He is a chronic lifelong smoker who reports a rpogressive worsening of exercise intolerance over the past two years. He can now only walk about 50-75 ft when last ar he could walk at least one mile without stopping to rest. He does not wear oxygen at home and reports having COPD. He is not on any inhalers. ROS also reveals chronic urinary frequency and patient reports recently undergoing a cystoscopy. He reports not being offered a medication to treat BPH. He has not tried to quit smoking but "I know I should quit." Reports a chronic cough with some increased frequency of cough, but not productive of sputum that has changed. He was taking Robitussin which his daughter gave him and he takes Zyrtec regularly for nasal congestion. He reports a remote h/o allergy to bee stings, but cannot remember the reaction. He declines epi pen and appears overwhelmed today by the suggestion and all the questioning above. He is still driving and was out at camp riding 4 wheelers and [id number]. We did discuss the dangers of operating a vehicle for himself and others, as well as the dangers of bathing, swimming, heights, and use of power tools. He verbalized understanding and MARIELLA states "he won't be driving at this point." Current vitals are 97/75 69 97% on 2L via [place] [facility] Neurology seen in the past Dr. Dev Parada PA-C with [facility] Daughter is POA Admission Exam Per Admitting Provider CONSTITUTIONAL: WNWD, vitals as above, generally well-appearing, NAD EYES: EOMI bilaterally, PERRL, normal conjunctivae, no scleral icterus, bespectacled ENT: external ear and nose normal, oropharynx clear, MMM NECK: trachea midline RESPIRATORY: clear to auscultation bilaterally, no crackles, rales or wheezes, normal respiratory effort CARDIOVASCULAR: regular rate and rhythm, S1 and 2 heard without murmurs, gallops or rubs, no JVD, no peripheral edema CHEST: inspection of chest was normal GASTROINTESTINAL: soft, nontender, ND, no guarding MUSCULOSKELETAL: strength 5/5 throughout, head is normocephalic and atraumatic SKIN: warm and dry NEUROLOGIC: CN 2-12 grossly intact, no sensory deficit, normal cognition, normal speech, no tremor PSYCHIATRIC: alert cooperative and oriented to person, place and time. Euthymic mood, makes good eye contact, language grossly intact, recent and remote memory grossly intact. Principal Dx & Hospital Course #1 = Principal Diagnosis (1) Seizure: Breakthrough Seizure per admitting service notes: h/o epilepsy, two events reported closely together over the past month after a long history of stability on Keppra 500mg PO BID. Patient reports compliance with antiseizure medications. He denies any recent illnesses. He does have COPD and was slightly hypoxic on room air this morning. He did start and OTC Robitussin pill? recently given to him by daughter. He was drinking alcohol last evening and has been at camp for the past week (typically people drink more consistently when at camp) and this may have contributed to seizures. Hypoxia workup as outlined below. CT head was negative. Will order MRI with and wo contrast, and EEG. CT chest for continued workup on hypoxia. Urine tox screen. Cont Keppra 1gm IV q12h for now pending neurology recommendations. Cont seizure precautions. Ativan PRN seizure. 11/05 Brain MRI: no acute CVA evaluated by Neurologist- recommend to increase Keppra to 1000mg BID ff up with Neuro in 2 week (2) Hypoxia: Currently 97% on 2LPM via nasal canula. May be related to seizure event this morning. No signs of COPD exacerbation at this time. CXR clear and lung exam reveals clear lungs to auscultation. CT PE ordered in ER with results pending. It is possible that hypoxia may be lowering his seizure threshold. Cont to wean oxygen as tolerated. 11/[address] chest: 1. No pulmonary emboli identified. 2. Moderate emphysema. Scattered secretions within the airways, as described above. 3. Minimal tree-in-bud nodules within left lower lobe suggestive of bronchiolitis. No consolidation to suggest pneumonia. 4. 6 mm right upper lobe nodule. This is likely benign. A follow up chest CT in 6 months to ensure stability is recommended. - may benefit from Doxycycline x 1 week, PRN Albuterol (3) COPD (chronic obstructive pulmonary disease): chronic, doesn't appear to be in exacerbation. Not on inhalers at home. Continues to smoke. Denies use of oxygen. Exercise intolerance reported over the past year. 11/05 Echo: EF 55-60% Gr 2 Diastolic Dysfunction moderate valvular aortic stenosis (4) Tobacco abuse: Smoking cessation strongly advised. Will provide Nicoderm for now. Patient signed out AMA before I was able to evaluate him I called his phone to discuss discharge instructions- no answer, left a voicemail requesting callback today Will call patient again later today. Discharge Exam was not able to be performed patient left AMA Updated Medication List Medication Instructions Recorded Confirmed Type M.V.I. 1 tab PO DAILY 11/04/22 11/04/22 History bisoprolol fumarate 5 mg tablet 5 mg PO DAILY 11/04/22 11/04/22 History cetirizine 10 mg tablet (Zyrtec) 10 mg PO DAILY 11/04/22 11/04/22 History krill oil 500 mg capsule 1,000 mg PO DAILY 11/04/22 11/04/22 History levetiracetam 500 mg tablet 500 mg PO BID 11/04/22 11/04/22 History levetiracetam 500 mg tablet 1,000 mg PO BID 30 days #120 tabs 11/05/22 Rx ([facility]) Hospital Stay Data Consultations 11/04/22 14:43 Consult Neurology Routine Diagnostic Imagining Performed 11/04/22 07:11 CT head/brain wo con Stat 11/04/22 11:28 MR brain seizure wo/w con Urgent FINDINGS: This exam is moderately compromised by motion artifact although remains diagnostic. There are no foci restricted diffusion to suggest acute infarct. No acute intracranial hemorrhage, midline shift or mass effect is present. Brain volume is normal. Ventricular system is normal. Basal cisterns are patent. There are no extra-axial collections. No intracranial mass or pathologic enhancement is present. No significant parenchymal signal abnormality is noted. Calvarial signal is normal. IMPRESSION: 1. No acute intracranial findings. 2. Exam moderately compromised by motion artifact however the study is diagnostic. No significant abnormalities. ACT 112: Negative or not required by law. 11/04/22 12:05 CT angio chest PE protocol Stat COMPARISON STUDY: Chest radiograph performed earlier today. TECHNIQUE: Following IV administration of 85 mL of Optiray, helical axial images of the chest were obtained utilizing the pulmonary embolus protocol. Maximal intensity projections and sagittal and coronal reformats were viewed on an independent 3D workstation. IV contrast was administered without complication. Automated exposure control was utilized for the study. A dose lowering technique was utilized adhering to the principles of ALARA. FINDINGS: No pulmonary emboli are identified. Size of the heart is normal. There is no thoracic aortic dissection. No pericardial effusion. There is no thoracic lymphadenopathy. There is mild to moderate calcification of the aortic valve. No pneumothorax or pleural effusion is present. Minimal tree-in-bud nodules within the left lower lobe are noted. There is mild left lower lobe bronchial wall thickening. There are scattered moderate secretions within the airways, including at the parmjit extending into the mainstem bronchi. Moderate emphysema is noted. A 6 mm linear right upper lobe nodule on image 138 is probably benign. Thorax is unremarkable. IMPRESSION: 1. No pulmonary emboli identified. 2. Moderate emphysema. Scattered secretions within the airways, as described above. 3. Minimal tree-in-bud nodules within left lower lobe suggestive of bronchiolitis. No consolidation to suggest pneumonia. 4. 6 mm right upper lobe nodule. This is likely benign. A follow up chest CT in 6 months to ensure stability is recommended. ACT 112: Negative or not required by law. Pending Results Patient Have Any Pending Studies at Discharge: Yes Total Time Total Time Spent Total Time Spent (In Minutes): > 30 minutes
--- NOTE | 2022-11-06 13:38 | Electrocardiogram Report ---
Test Reason : Blood Pressure : / mmHG Vent. Rate : 054 BPM Atrial Rate : 054 BPM P-R Int : 158 ms QRS Dur : 094 ms QT Int : 444 ms P-R-T Axes : 075 052 -16 degrees QTc Int : 421 ms Sinus bradycardia Nonspecific T wave abnormality Abnormal ECG When compared with ECG of 04-NOV-2022 06:56, Premature ventricular complexes are no longer Present Vent. rate has decreased BY 32 BPM Nonspecific T wave abnormality now evident in Inferior leads Confirmed by Prince Woods ([id number]) on 11/06/2022 1:38:23 PM Referred By: REFERRED SELF Confirmed By:Prince Woods
== END 2022-11-05 12:55 | disposition left against medical advice (07) | DRG 101 ==
LOC: ED 06:49 → SUATTDRO 11:37 → 2S 11:37